=== PATIENT | female | born 1935 | race Caucasian/White ===

== ENCOUNTER → 2017-04-03 | Outpatient (CLI) | payer OTHER | LOC: M PLARAD 09:28 | DX: M25.559 Pain in unspecified hip (principal); M46.1 Sacroiliitis, not elsewhere classified; M70.60 Trochanteric bursitis, unspecified hip; M51.27 Other intervertebral disc displacement, lumbosacral region; M47.816 Spondylosis without myelopathy or radiculopathy, lumbar region; M51.36 Other intervertebral disc degeneration, lumbar region; M48.061 Spinal stenosis, lumbar region without neurogenic claudication | CPT/HCPCS: 73721 ==

== ENCOUNTER → 2017-09-16 | Outpatient (REF) | payer OTHER ==
[2017-09-16 13:06] LABS: PLATELET COUNT, AUTOMATED 415 10^3/uL (150-450)
[2017-09-16 13:14] LABS: PARTIAL THROMBOPLASTIN TIME 29.5 SECONDS (25.4-37.6); PROTHROMBIN TIME 13.3 SECONDS (12.1-14.4)
== END ==
LOC: M LAB REF 12:53
DX: Z01.812 Encounter for preprocedural laboratory examination (principal); R91.8 Other nonspecific abnormal finding of lung field
CPT/HCPCS: 85049

== ENCOUNTER → 2017-09-18 | Outpatient (CLI) | payer OTHER ==
[2017-09-18 12:16] LABS: PLATELET COUNT, AUTOMATED 400 10^3/uL (150-450)
[2017-09-18 12:40] LABS: INR 1.02; PROTHROMBIN TIME 13.5 SECONDS (12.1-14.4)
[2017-09-18 12:41] LABS: PARTIAL THROMBOPLASTIN TIME 29.8 SECONDS (25.4-37.6)
== END ==
LOC: M LAB 11:45
DX: R91.8 Other nonspecific abnormal finding of lung field (principal)
CPT/HCPCS: 85049

== ENCOUNTER → 2017-10-02 | Outpatient (CLI) | payer OTHER ==
[~2017-10-02] MED LIST: LIDOCAINE 1% MDV 20ML VIAL As Ordered
== END ==
LOC: M RADPRO 07:55
DX: J98.4 Other disorders of lung (principal); Z79.84 Long term (current) use of oral hypoglycemic drugs; Z79.899 Other long term (current) drug therapy; Z88.8 Allergy status to other drugs, medicaments and biological substances
CPT/HCPCS: 32405

== ENCOUNTER → 2018-09-28 | Outpatient (CLI) | payer MEDICARE ==
[~2018-09-28] MED LIST changes: +CALC1TAB30 PO; +CRAN400C PO; +CYAN100049 PO; +GLIM4TAB PO; +JANU25TA PO; +LEVO100T54 PO; -LIDOCAINE 1% MDV 20ML VIAL As Ordered; +MECL12.575 PO; +METO50TA7 PO; +PRAV20TA2 PO; +RAMI1CAP22 PO; +TRAV04OPD OU
--- NOTE | 2018-09-29 07:50 | REP ---
Clinical: Hypertension and chronic medical renal disease. Technique: Blake scale and color Doppler evaluation of the kidneys and renal vasculature using curved array transducer. Findings: The kidneys demonstrate increased central sinus fat and renovascular calcifications without obvious nephrolithiasis or mass lesion. No perinephric fluid collection. Right kidney measures 6.6 x 3.5 x 4.0 cm and appears atrophic without hydronephrosis. Left kidney measures 9.6 x 5.1 x 5.1 cm and includes 6 cm upper pole cyst and 2.9 cm peripelvic cyst without hydronephrosis. Bladder appears grossly normal by current evaluation measuring 11.0 x 8.4 x 8.9 cm. Color Doppler evaluation of the renal vasculature demonstrates normal arterial wave patterns, velocities, renal aortic ratios, resistive indices and the acceleration time. No sonographic evidence for renal arterial stenosis noted. Renal vein is patent. Right Kidney: Peak arterial velocity: 84 cm/sec . Renal aortic ratio: 1.0 . Resistive indices: 0.57 - 0.70 . Acceleration times: 0.02 - 0.04 . Left kidney: Peak arterial velocity: 95 cm/sec . Renal aortic ratio: 1.1 . Resistive indices: 0.80 - 0.86 . Acceleration times: 0.03 - 0.09 . Impression: 1. Examination is limited due to body habitus and overlying bowel gas. 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 2. Chronic medical renal disease. No hydronephrosis. Electronically Signed by Bryon Glaser MD 09/29/2018 07:41 A
== END ==
LOC: M RAD 08:32
PROVIDERS: ATTEND Internal Medicine Nephrology
DX: N18.4 Chronic kidney disease, stage 4 (severe) (principal); I15.0 Renovascular hypertension